=== PATIENT | female | born 1980 | race Caucasian/White ===

== ENCOUNTER 2017-01-26 06:54 | Emergency (ER) | payer MEDICAID ==
[~2017-01-26] VITALS: Wt 56.8 kg
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
[2017-01-26] MEDS ORDERED: HYDR-906 PO (08:34)
[2017-01-26] MEDS ORDERED: IBUP-1542 PO (08:35)
[2017-01-26] MEDS ORDERED: ORPH100T PO (08:36)
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
== END 2017-01-26 09:14 | disposition home or self-care (01) ==
LOC: FTE 06:54
DX: S19.9XXA Unspecified injury of neck, initial encounter (principal); S09.90XA Unspecified injury of head, initial encounter; R51 Headache; V49.40XA Driver injured in collision with unspecified motor vehicles in traffic accident, initial encounter
CPT/HCPCS: 70450; 72125; Z7502